=== PATIENT | male | born 1955 | race Caucasian/White ===

== ENCOUNTER 2021-09-22 08:53 | Day surgery (SDC) | payer OTHER ==
[2021-09-16 10:40] LABS: BASOPHILS % (AUTO) 0.3 % (0-1); EOSINOPHILS % (AUTO) 0.4 % (0-6); LYMPHOCYTES # (AUTO) 1.6 X10'3 (1.1-4.8); LYMPHOCYTES % (AUTO) 23.2 % (21-51); MEAN CORPUSCULAR HGB CONC 33.3 g/dL (33.0-36.5); MEAN PLATELET VOLUME 7.7 FL (7.4-10.4); MONOCYTES # (AUTO) 0.5 X10'3 (0-0.9); MONOCYTES % (AUTO) 7.3 % (2-12); NEUTROPHILS # (AUTO) 4.7 X10'3 (1.8-7.7); NEUTROPHILS % (AUTO) 68.8 % (42-75); PRE OP HEMATOCRIT 47.3 % (42.0-52.0); PRE OP HEMOGLOBIN 15.8 g/dL (14.0-17.9); PRE OP PLATELET COUNT 269 X10'3 (140-440); RED BLOOD COUNT 5.25 X10'6 (4.70-6.10); RED CELL DISTRIBUTION WIDTH 13.3 % (11.5-14.5)
[2021-09-16 11:21] LABS: ALBUMIN 4.3 G/DL (3.4-5.0); ALBUMIN/GLOBULIN RATIO 1.5 (1.1-1.5); BLOOD UREA NITROGEN 20 MG/DL (7-18); BUN/CREATININE RATIO 17.5 (5.4-32.0); CALCIUM 9.3 MG/DL (8.5-10.1); CHLORIDE 106 MMOL/L (99-107); CREATININE 1.14 MG/DL (0.60-1.10); PRE OP ALT 34 U/L (30-65); PRE OP ANION GAP 10 (8-16); PRE OP AST 24 U/L (10-37); PRE OP BILIRUB, TOTAL 0.8 MG/DL (0.0-1.0); PRE OP GLUCOSE 98 MG/DL (70-104); PRE OP POTASSIUM 4.6 MMOL/L (3.4-5.1); PRE OP SODIUM 142 MMOL/L (135-145); TOTAL CARBON DIOXIDE 25.9 MMOL/L (24-32); TOTAL PROTEIN 7.2 G/DL (6.4-8.2); eGFR 64 ML/MIN
[2021-09-22] VITALS (7 sets, daily range): BP systolic 138–150; BP diastolic 86–94
[~2021-09-22] VITALS: Ht 182.9 cm; Wt 100.6 kg
[~2021-09-22 08:53] MED LIST: CELE200C PO; DIPH25CA83 PO; MELA5TAB12 PO; TYL650S RC; cefazolin/dext.iso 2gm/50ml IV ONE; famotidine 20mg tablet PO ONE; ringers solution, lacted 1,000 ML IV SCH
[2021-09-22] MEDS ORDERED: cefazolin/dext.iso 2gm/50ml IV ONE (09:25)
[2021-09-22] MEDS ORDERED: BUPIVAcaine 0.5% inj/PF 30 ML ONE (10:50)
[2021-09-22] MEDS ORDERED: methylPREDNISolone sod succ 125mg/2ml vial ONE (10:50)
[2021-09-22] MEDS ORDERED: FENTANYL CITRATE/PF 50 MCG/1 ML VIAL ONE ×2 (10:56→10:57)
[2021-09-22] MEDS ORDERED: midazolam 1 mg/ML 2ml injection ONE (10:56)
[2021-09-22] MEDS ORDERED: LIDOcaine 0.5% (5mg/ml) 50ml vial ONE (11:00)
[2021-09-22] MEDS ORDERED: meperidine/PF 25mg/ml syringe IV PRN ×3 (11:25)
[2021-09-22] MEDS ORDERED: ringers solution, lacted 1,000 ML IV SCH (11:25)
[2021-09-22] MEDS ORDERED: morphine 2 MG/ML inj. syringe IV PRN (11:25)
[2021-09-22] MEDS ORDERED: ondansetron/PF 4mg/2ml inj IV PRN (11:25)
[2021-09-22] MEDS ORDERED: proCHLORperazine 10 MG/2 ml inj IV PRN (11:25)
[2021-09-22] MEDS ORDERED: morphine 4 MG/ML inj SYRINge IV PRN (11:25)
[2021-09-22] MEDS ORDERED: propofol inj 20 ML IV ONE (11:31)
--- NOTE | 2021-09-22 11:34 | NUR ---
Received from OR via gallo, accompanied by Anesthesiologist Jennifer and report given by Anesthesiolgist. VS WNL, room air, talking and oriented appropriately. Left hand dressed and wrapped, fingers exposed good cap refill. 20G right hand LR at 100cc/hr.
--- NOTE | 2021-09-22 12:34 | NUR ---
Pt discharged to vehicle by wheelchair without incident after IV DC'd. Ice pack given to pt along wtih all belongings, he and verbalised understnading of dc instructions. He has pain meds at home.
== END 2021-09-22 12:34 | disposition home or self-care (01) ==
LOC: PAS 08:53
PROVIDERS: ATTEND Orthopaedic Surgery
DX: M65.332 Trigger finger, left middle finger (principal); S66.113A Strain of flexor muscle, fascia and tendon of left middle finger at wrist and hand level, initial encounter; M17.0 Bilateral primary osteoarthritis of knee; I10 Essential (primary) hypertension; E66.8 Other obesity; Z68.31 Body mass index [BMI] 31.0-31.9, adult; Z20.822 Contact with and (suspected) exposure to COVID-19; Z88.8 Allergy status to other drugs, medicaments and biological substances; Z88.5 Allergy status to narcotic agent; Z98.890 Other specified postprocedural states; Z79.899 Other long term (current) drug therapy; Z82.49 Family history of ischemic heart disease and other diseases of the circulatory system; X58.XXXA Exposure to other specified factors, initial encounter; Y93.89 Activity, other specified; Y92.89 Other specified places as the place of occurrence of the external cause; Y99.8 Other external cause status
CPT/HCPCS: 26055; 26357; 36415; 80053; 82948; 85025; 93005; A6222; J0690; J2250; J2704; J2930; J3010; J3490; J7030; J7120; S0020; U0003; U0005; Z7506; Z7512; A4215; A4618; A6250; A6449; A7000